=== PATIENT | female | born 1960 | race African-American/Black ===

== ENCOUNTER 2016-12-21 18:25 | Emergency (ER) | payer MEDICAID ==
[~2016-12-21] VITALS: Ht 165.1 cm; Wt 60.0 kg
[~2016-12-21 18:25] MED LIST: ALPR2TAB2 PO; ASPI-1035 PO; ATOR20TA PO; Aspirin PO; FERR-43 PO; OXYC30TA89 PO
[2016-12-21] MEDS ORDERED: KETOROLAC 60MG/2ML VIAL IM ONE (18:45)
[2016-12-21 19:03] LABS: HEMATOCRIT. 41.7 % (36.0-48.0); HEMOGLOBIN. 13.6 g/dL (12.0-16.0); MEAN CORPUSCULAR HEMOGLOBIN 25.3 pg (28.0-32.0); MEAN CORPUSCULAR VOLUME 77.6 fL (81.0-99.0); MEAN PLATELET VOLUME 7.8 fl (7.4-10.4); PLATELET 334 x1000/uL (130-400); RED BLOOD CELL COUNT 5.38 mill/uL (4.2-5.4); RED CELL DISTRIBUTION WIDTH 14.7 % (11.6-14.6)
[2016-12-21 19:09] LABS: PARTIAL THROMBOPLASTIN TIME 29.1 sec (24.0-34.0); PROTHROMBIN TIME 10.6 sec
[2016-12-21 19:16] LABS: CARBON DIOXIDE 25 mEq/L (21-32); CHLORIDE 107 mEq/L (98-107); ETHANOL BLOOD < 10 mg/dL; TROPONIN I < 0.02 ng/mL (0.00-0.04)
[2016-12-21 19:55] VITALS: BP 142/86
[2016-12-21 20:02] LABS: PLATELET ESTIMATE NORMAL
== END 2016-12-21 19:58 | disposition home or self-care (01) ==
LOC: ER 18:25
DX: R07.89 Other chest pain (principal); F14.10 Cocaine abuse, uncomplicated; I25.2 Old myocardial infarction; M32.9 Systemic lupus erythematosus, unspecified; J44.9 Chronic obstructive pulmonary disease, unspecified; F12.10 Cannabis abuse, uncomplicated; Z86.73 Personal history of transient ischemic attack (TIA), and cerebral infarction without residual deficits; Z88.0 Allergy status to penicillin; Z88.2 Allergy status to sulfonamides; Z88.8 Allergy status to other drugs, medicaments and biological substances
CPT/HCPCS: 36415; 71010; 80053; 83880; 84484; 85025; 85610; 85730; 93005; 99285; G0482; Z7610; J1885

== ENCOUNTER 2019-08-18 16:09 | Emergency (ER) | payer MEDICAID ==
[~2019-08-18] VITALS: Ht 154.9 cm; Wt 66.0 kg
[~2019-08-18 16:09] MED LIST changes: -ASPI-1035 PO; +ASPI-1497 PO; -ATOR20TA PO; -Aspirin PO; -FERR-43 PO
[2019-08-18] MEDS ORDERED: TETRACAINE 0.5% OPHTH DROPS 4ML BOTHEYE ONE (18:45)
[2019-08-18] MEDS ORDERED: ACETAMINOPHEN 500MG TABLET PO ONE (18:45)
[2019-08-18] MEDS ORDERED: OXYCODONE HCL 10MG TABLET SR 12HR PO ONE (19:45)
[2019-08-18] MEDS ORDERED: FLUORESCEIN SODIUM 1MG/STRIP LEFTEYE ONE (19:45)
[2019-08-18 20:51] VITALS: BP 120/62
== END 2019-08-18 20:52 | disposition home or self-care (01) ==
LOC: ER 16:09
DX: S05.02XA Injury of conjunctiva and corneal abrasion without foreign body, left eye, initial encounter (principal); X58.XXXA Exposure to other specified factors, initial encounter; Y93.9 Activity, unspecified; H57.12 Ocular pain, left eye; J45.909 Unspecified asthma, uncomplicated; F17.200 Nicotine dependence, unspecified, uncomplicated; Z85.9 Personal history of malignant neoplasm, unspecified; Z88.0 Allergy status to penicillin; Z88.2 Allergy status to sulfonamides; Z88.6 Allergy status to analgesic agent
CPT/HCPCS: 99284; Z7610

== ENCOUNTER 2022-09-07 02:35 | Inpatient (IN) | payer MEDICAID, OTHER ==
[~2022-09-07] VITALS: Ht 157.5 cm; Wt 65.0 kg
[~2022-09-07 02:35] MED LIST changes: +OXYC-582 PO; -OXYC30TA89 PO
[2022-09-07 05:01] LABS: BASOPHILS % 0.5 % (0.0-2.0); EOSINOPHILS % 0.3 % (0.0-5.0); HEMATOCRIT. 35.2 % (36.0-48.0); HEMOGLOBIN. 11.5 g/dL (12.0-16.0); LYMPHOCYTES % 40.1 % (20.0-50.0); MEAN CORPUSCULAR VOLUME 79.3 fL (81.0-99.0); MEAN PLATELET VOLUME 6.9 fl (7.4-10.4); MONOCYTES % 6.4 % (2.0-8.0); NEUTROPHILS % 52.7 % (40.0-76.0); PLATELET 316 x1000/uL (130-400); RED BLOOD CELL COUNT 4.44 mill/uL (4.2-5.4); RED CELL DISTRIBUTION WIDTH 16.4 % (11.6-14.6)
[2022-09-07 05:11] LABS: CHLORIDE 108 mEq/L (98-107)
[2022-09-07] MEDS ORDERED: ONDANSETRON HCL 4MG/2ML INJ IV NR (05:56)
[2022-09-07] MEDS ORDERED: IPRATROPIUM BROMIDE (0.02%) 0.5MG/2.5ML NEB HHN NR (05:56)
[2022-09-07] MEDS ORDERED: MORPHINE SULFATE 4 MG/ML CPJ (NOT FOR IM USE) IV NR (05:56)
[2022-09-07] MEDS ORDERED: ALBUTEROL (0.083%) 2.5MG/3ML NEB HHN NR (05:56)
[2022-09-07] MEDS: SODIUM CHLORIDE 0.9% 1,000 ML IV NR (06:40)
[2022-09-07 15:33] LABS: CLARITY URINE CLOUDY (CLEAR); COLOR URINE YELLOW (YELLOW); KETONES URINE NEGATIVE (NEGATIVE); LEUKOCYTE ESTERASE URINE 1+ (NEGATIVE); NITRITE URINE POSITIVE (NEGATIVE); OCCULT BLOOD URINE 1+ (NEGATIVE); PH URINE 5.5 (4.5-8.0); PROTEIN URINE NEGATIVE (NEGATIVE); SPECIFIC GRAVITY URINE 1.022 (1.005-1.030); UROBILINOGEN URINE 0.2 E.U./dL (0.2-1.0)
[2022-09-07 16:00] VITALS: BP 145/85
[2022-09-07 16:20] VITALS: BP 145/85
[2022-09-07] MEDS ORDERED: ACETAMINOPHEN 325MG TABLET PO PRN (17:30)
[2022-09-07] MEDS ORDERED: NALOXONE HCL 0.4 MG/ML 1ML VIAL IV PRN (17:30)
[2022-09-07] MEDS ORDERED: ONDANSETRON HCL 4MG/2ML INJ IV PRN (17:30)
[2022-09-07] MEDS ORDERED: NALOXONE HCL 0.4MG/ML VIAL IV PRN (17:45)
[2022-09-07] MEDS: SODIUM CHLORIDE 0.9% 1,000 ML IV SCH (18:08)
[2022-09-07 20:00] VITALS: BP 130/64
[2022-09-07] MEDS: OXYCODONE HCL 10MG TABLET SR 12HR PO SCH (20:52)
[2022-09-08] VITALS: BP 155/93
[2022-09-08] MEDS ORDERED: DIPHENHYDRAMINE 50MG/ML VIAL IV PRN (01:00)
[2022-09-08] MEDS ORDERED: CLONIDINE 0.1MG TABLET PO PRN (01:00)
[2022-09-08 04:00] VITALS: BP_SYST 107; BP_SYST 121; BP_DIAS 61; BP_DIAS 63
[2022-09-08] MEDS: SODIUM CHLORIDE 0.9% 1,000 ML IV SCH ×2 (06:55→20:10)
[2022-09-08 07:19] LABS: BASOPHILS % 0.7 % (0.0-2.0); EOSINOPHILS % 0.3 % (0.0-5.0); HEMOGLOBIN. 10.7 g/dL (12.0-16.0); LYMPHOCYTES % 38.6 % (20.0-50.0); MEAN CORPUSCULAR HEMOGLOBIN 26.3 pg (28.0-32.0); MEAN CORPUSCULAR VOLUME 81.7 fL (81.0-99.0); MEAN PLATELET VOLUME 7.6 fl (7.4-10.4); MONOCYTES % 6.6 % (2.0-8.0); NEUTROPHILS % 53.8 % (40.0-76.0); PLATELET 273 x1000/uL (130-400); RED BLOOD CELL COUNT 4.05 mill/uL (4.2-5.4); RED CELL DISTRIBUTION WIDTH 16.7 % (11.6-14.6)
[2022-09-08 07:55] LABS: CHLORIDE 107 mEq/L (98-107)
[2022-09-08 08:12] LABS: HDL CHOLESTEROL 97 mg/dL (40-59); LDL CHOLESTEROL 108 mg/dL (5-100); TOTAL IRON BINDING CAPACITY 273 ug/dL (250-450)
[2022-09-08 08:24] LABS: FOLIC ACID (FOLATE) SERUM 11.5 ng/mL (>5.38)
[2022-09-08] MEDS: OXYCODONE HCL 10MG TABLET SR 12HR PO SCH ×2 (08:32→21:14)
[2022-09-08] MEDS ORDERED: POTASSIUM CHLORIDE INJ 40 MEQ in DEXT 5% WATER 250 ML IV SCH (16:00)
[2022-09-08] MEDS: PANTOPRAZOLE SODIUM 40 MG/VIAL IV SCH (16:40)
[2022-09-08] MEDS: METOCLOPRAMIDE HCL 10MG/2ML VIAL IV SCH ×2 (16:40→21:13)
[2022-09-08] MEDS: LIDOCAINE 5% PATCH TOP SCH (19:02)
[2022-09-08 20:00] VITALS: BP 110/73
[2022-09-09] VITALS (7 sets, daily range): BP systolic 114–155; BP diastolic 71–90
[2022-09-09] MEDS: METOCLOPRAMIDE HCL 10MG/2ML VIAL IV SCH ×3 (05:20→21:30)
[2022-09-09 07:14] LABS: CHLORIDE 111 mEq/L (98-107)
[2022-09-09 07:27] LABS: BASOPHILS % 0.4 % (0.0-2.0); EOSINOPHILS % 0.8 % (0.0-5.0); HEMATOCRIT. 33.3 % (36.0-48.0); HEMOGLOBIN. 10.6 g/dL (12.0-16.0); LYMPHOCYTES % 33.8 % (20.0-50.0); MEAN CORPUSCULAR VOLUME 81.6 fL (81.0-99.0); MONOCYTES % 9.3 % (2.0-8.0); NEUTROPHILS % 55.7 % (40.0-76.0); PLATELET 269 x1000/uL (130-400); RED BLOOD CELL COUNT 4.08 mill/uL (4.2-5.4); RED CELL DISTRIBUTION WIDTH 17.2 % (11.6-14.6)
[2022-09-09] MEDS: OXYCODONE HCL 10MG TABLET SR 12HR PO SCH ×2 (08:34→21:30)
[2022-09-09] MEDS: LIDOCAINE 5% PATCH TOP SCH (08:35)
[2022-09-09] MEDS: SODIUM CHLORIDE 0.9% 1,000 ML IV SCH ×2 (08:36→21:30)
[2022-09-09] MEDS: PANTOPRAZOLE SODIUM 40 MG/VIAL IV SCH (08:58)
[2022-09-09] MEDS: DOCUSATE SODIUM 100MG CAPSULE PO PRN ×2 (08:59→18:34)
[2022-09-09] MEDS ORDERED: CEFTRIAXONE 1 G PREMIX 50 ML IV SCH (10:45)
[2022-09-09] MEDS ORDERED: LEVO-65 MT (11:08)
[2022-09-09] MEDS: CEFTRIAXONE 1,000 MG in DEXTROSE 5% WATER 50 ML IV SCH ×2 (12:01→12:04)
[2022-09-09] MEDS ORDERED: IPRATROPIUM/ALBUTEROL 0.5-3(2.5)MG/3ML NEB HHN PRN (14:15)
[2022-09-09] MEDS ORDERED: IPRATROPIUM BROMIDE (0.02%) 0.5MG/2.5ML NEB HHN PRN (14:15)
[2022-09-09] MEDS: ALBUTEROL (0.083%) 2.5MG/3ML NEB HHN PRN (15:32)
[2022-09-10] VITALS: BP 138/70
[2022-09-10] MEDS ORDERED: DIPHENHYDRAMINE 50MG CAPSULE PO PRN
[2022-09-10 04:00] VITALS: BP 137/71
[2022-09-10] MEDS: METOCLOPRAMIDE HCL 10MG/2ML VIAL IV SCH (06:16)
[2022-09-10 08:00] VITALS: BP 140/72
[2022-09-10] MEDS ORDERED: FAMOTIDINE 20MG/2ML VIAL IV SCH (09:00)
[2022-09-10] MEDS: DOCUSATE SODIUM 100MG CAPSULE PO PRN (09:45)
[2022-09-10] MEDS: OXYCODONE HCL 10MG TABLET SR 12HR PO SCH (09:45)
[2022-09-10 09:46] VITALS: BP 140/72
[2022-09-10] MEDS: LIDOCAINE 5% PATCH TOP SCH (09:46)
[2022-09-10] MEDS ORDERED: METHYLPREDNISOLONE SOD SUCC 40 MG/ML VIAL IV SCH (12:00)
[2022-09-10] MEDS ORDERED: LACTULOSE 20G/30ML UDC PO NR (12:45)
[2022-09-10] MEDS: SODIUM CHLORIDE 0.9% 1,000 ML IV NR (12:46)
[2022-09-10] MEDS: SODIUM CHLORIDE 0.9% 1,000 ML IV SCH (12:47)
[2022-09-10] MEDS: ALBUTEROL (0.083%) 2.5MG/3ML NEB HHN PRN (13:03)
[2022-09-10] MEDS ORDERED: PREDNISONE 20MG TABLET PO SCH (14:00)
[2022-09-10] MEDS ORDERED: SORBITOL 70% SOLN 30ML PO NR (15:00)
== END 2022-09-10 15:30 | disposition home or self-care (01) | DRG 253 ==
LOC: ER 02:35 → MICUSO 11:26 → 7EST 16:48
PROVIDERS: ADMIT Internal Medicine; ATTEND Internal Medicine
DX: K92.2 Gastrointestinal hemorrhage, unspecified (principal); I50.43 Acute on chronic combined systolic (congestive) and diastolic (congestive) heart failure; I69.354 Hemiplegia and hemiparesis following cerebral infarction affecting left non-dominant side; N12 Tubulo-interstitial nephritis, not specified as acute or chronic; N39.0 Urinary tract infection, site not specified; I11.0 Hypertensive heart disease with heart failure; M32.9 Systemic lupus erythematosus, unspecified; I25.10 Atherosclerotic heart disease of native coronary artery without angina pectoris; D50.9 Iron deficiency anemia, unspecified; R19.7 Diarrhea, unspecified; I10 Essential (primary) hypertension; E78.5 Hyperlipidemia, unspecified; G89.29 Other chronic pain; R63.0 Anorexia; Z85.3 Personal history of malignant neoplasm of breast; Z88.0 Allergy status to penicillin; Z87.891 Personal history of nicotine dependence; Z88.2 Allergy status to sulfonamides; Z88.6 Allergy status to analgesic agent; Z87.442 Personal history of urinary calculi; N20.0 Calculus of kidney; Z86.718 Personal history of other venous thrombosis and embolism
CPT/HCPCS: 36415; 71045; 74176; 80048; 80053; 80061; 81003; 82607; 82728; 82746; 83540; 83550; 84443; 84484; 85025; 85379; 93005; 93306; 93970; 94640; 99285; C1893; C9113; J0696; J1200; J2270; J2310; J2405; J2765; J2920; J3480; J3490; J7030; J7060; J7512; Q0163

== ENCOUNTER 2022-09-14 10:19 | Inpatient (IN) | payer MEDICAID ==
[~2022-09-14] VITALS: Ht 157.5 cm; Wt 63.0 kg
[~2022-09-14 10:19] MED LIST changes: +LEVO-65 MT
[2022-09-14] MEDS ORDERED: MORPHINE SULFATE 4 MG/ML CPJ (NOT FOR IM USE) IV ONE (16:15)
[2022-09-14 16:54] LABS: CLARITY URINE CLEAR (CLEAR); COLOR URINE YELLOW (YELLOW); KETONES URINE NEGATIVE (NEGATIVE); LEUKOCYTE ESTERASE URINE NEGATIVE (NEGATIVE); NITRITE URINE NEGATIVE (NEGATIVE); OCCULT BLOOD URINE 1+ (NEGATIVE); PROTEIN URINE NEGATIVE (NEGATIVE); SPECIFIC GRAVITY URINE 1.023 (1.005-1.030); UROBILINOGEN URINE 0.2 E.U./dL (0.2-1.0)
[2022-09-14] MEDS ORDERED: ALBUTEROL (0.083%) 2.5MG/3ML NEB HHN STA (17:25)
[2022-09-14] MEDS ORDERED: IPRATROPIUM BROMIDE (0.02%) 0.5MG/2.5ML NEB HHN STA (17:25)
[2022-09-14 17:31] LABS: EOSINOPHILS % 0.5 % (0.0-5.0); HEMATOCRIT. 35.1 % (36.0-48.0); HEMOGLOBIN. 11.4 g/dL (12.0-16.0); LYMPHOCYTES % 41.2 % (20.0-50.0); MEAN CORPUSCULAR HEMOGLOBIN 25.9 pg (28.0-32.0); MEAN CORPUSCULAR VOLUME 79.7 fL (81.0-99.0); MEAN PLATELET VOLUME 7.5 fl (7.4-10.4); MONOCYTES % 10.7 % (2.0-8.0); NEUTROPHILS % 44.6 % (40.0-76.0); PLATELET 368 x1000/uL (130-400); RED CELL DISTRIBUTION WIDTH 16.6 % (11.6-14.6)
[2022-09-14 17:38] LABS: CHLORIDE 104 mEq/L (98-107)
[2022-09-14 17:41] LABS: PARTIAL THROMBOPLASTIN TIME 28.8 sec (23.4-31.0); PROTHROMBIN TIME 10.9 sec (9.6-11.0)
[2022-09-14] MEDS ORDERED: ALBUTEROL (0.083%) 2.5MG/3ML NEB ONE (20:21)
[2022-09-14] MEDS ORDERED: IPRATROPIUM BROMIDE (0.02%) 0.5MG/2.5ML NEB ONE (20:21)
[2022-09-15] MEDS ORDERED: ENOXAPARIN 40MG/0.4ML SYR SUBCUT NR
[2022-09-15 01:04] VITALS: BP 120/78
[2022-09-15 04:05] VITALS: BP 97/55
[2022-09-15] MEDS ORDERED: IPRATROPIUM/ALBUTEROL 0.5-3(2.5)MG/3ML NEB HHN PRN (05:45)
[2022-09-15] MEDS ORDERED: ALBUTEROL (0.083%) 2.5MG/3ML NEB HHN PRN (06:00)
[2022-09-15] MEDS ORDERED: IPRATROPIUM BROMIDE (0.02%) 0.5MG/2.5ML NEB HHN PRN (06:00)
[2022-09-15] MEDS: HYDROCODONE/ACETAMINOPHEN 5/325MG TABLET PO PRN ×2 (07:30→13:19)
[2022-09-15 08:00] VITALS: BP 103/66
[2022-09-15] MEDS ORDERED: ENOXAPARIN 40MG/0.4ML SYR SUBCUT SCH (09:00)
[2022-09-15 09:16] LABS: BASOPHILS % 0.6 % (0.0-2.0); EOSINOPHILS % 0.3 % (0.0-5.0); HEMATOCRIT. 34.7 % (36.0-48.0); HEMOGLOBIN. 11.2 g/dL (12.0-16.0); LYMPHOCYTES % 29.8 % (20.0-50.0); MEAN CORPUSCULAR VOLUME 80.5 fL (81.0-99.0); MEAN PLATELET VOLUME 7.5 fl (7.4-10.4); MONOCYTES % 12.2 % (2.0-8.0); NEUTROPHILS % 57.1 % (40.0-76.0); PLATELET 349 x1000/uL (130-400); RED BLOOD CELL COUNT 4.31 mill/uL (4.2-5.4); RED CELL DISTRIBUTION WIDTH 16.9 % (11.6-14.6)
[2022-09-15 09:26] LABS: CHLORIDE 105 mEq/L (98-107)
[2022-09-15 09:38] LABS: CREATINE KINASE 71 IU/L (26-192); CREATINE KINASE MB FRACTION < 1.0 ng/mL (0.5-3.6)
[2022-09-15] MEDS ORDERED: NALOXONE HCL 0.4MG/ML VIAL IV PRN (10:00)
[2022-09-15 12:00] VITALS: BP 92/50
[2022-09-15] MEDS ORDERED: PROT40 MT (13:16)
[2022-09-15 14:24] VITALS: BP 103/66
== END 2022-09-15 16:30 | disposition home or self-care (01) | DRG 203 ==
LOC: ER 10:19 → 3WST 09-15 00:59
PROVIDERS: ADMIT Internal Medicine; ATTEND Internal Medicine
DX: M94.0 Chondrocostal junction syndrome [Tietze] (principal); I50.30 Unspecified diastolic (congestive) heart failure; I11.0 Hypertensive heart disease with heart failure; K29.20 Alcoholic gastritis without bleeding; E78.5 Hyperlipidemia, unspecified; F12.90 Cannabis use, unspecified, uncomplicated; F17.200 Nicotine dependence, unspecified, uncomplicated; J44.9 Chronic obstructive pulmonary disease, unspecified; G89.29 Other chronic pain; Z87.442 Personal history of urinary calculi; Z86.73 Personal history of transient ischemic attack (TIA), and cerebral infarction without residual deficits; Z88.2 Allergy status to sulfonamides; Z88.0 Allergy status to penicillin
CPT/HCPCS: 36415; 71045; 80053; 81003; 82270; 82550; 82553; 83880; 84484; 85025; 93005; 94664; 99285; J1650; J2270

== ENCOUNTER 2024-01-11 20:21 | Emergency (ER) | payer MEDICAID ==
[~2024-01-11] VITALS: Ht 154.9 cm; Wt 63.2 kg
[~2024-01-11 20:21] MED LIST changes: +ALBU18HF2 IH; -ALPR2TAB2 PO; +FLUT1DIS3 INH; +GUAI600T26 MT; +HYDR12.54 MT; +IPRA3AMP9 NEB; -LEVO-65 MT; -OXYC-582 PO; +P20 PO; +PANT20TA17 PO
[2024-01-11 20:41] VITALS: O2SAT 98
[2024-01-12] MEDS: ACETAMINOPHEN 325MG TABLET PO ONE (00:03)
[2024-01-12 00:29] VITALS: BP 135/77; PULSE 89; RESP 16; TEMP 98.5
== END 2024-01-12 00:30 | disposition home or self-care (01) ==
LOC: ER 20:21
DX: R51.9 Headache, unspecified (principal); M54.9 Dorsalgia, unspecified; I11.0 Hypertensive heart disease with heart failure; I50.9 Heart failure, unspecified; E78.00 Pure hypercholesterolemia, unspecified; Z86.73 Personal history of transient ischemic attack (TIA), and cerebral infarction without residual deficits; Z79.899 Other long term (current) drug therapy
CPT/HCPCS: 99282

== ENCOUNTER 2024-01-21 18:04 | Emergency (ER) | payer MEDICAID ==
[~2024-01-21] VITALS: Ht 167.6 cm; Wt 75.0 kg
[2024-01-21 18:15] VITALS: BP 141/78; PULSE 97; RESP 18; TEMP 98.1; O2SAT 98
== END 2024-01-21 21:22 | disposition left against medical advice (07) ==
LOC: ER 18:04
DX: I10 Essential (primary) hypertension (principal); Z53.21 Procedure and treatment not carried out due to patient leaving prior to being seen by health care provider